=== PATIENT | male | born 1970 | race Caucasian/White ===

== ENCOUNTER 2020-04-28 07:03 | Outpatient (CLI) | payer MEDICARE, BC ==
[2020-04-28 08:12] LABS: BASOPHILS % (AUTO) 2 % (0-1); EOSINOPHILS % (AUTO) 7 % (1-7); LYMPHOCYTES % (AUTO) 24 % (22-44); MEAN CORPUSCULAR HEMOGLOBIN 30.8 pg (27.5-34.5); MEAN CORPUSCULAR HGB CONC 33.7 g/dL (33.2-36.2); MEAN PLATELET VOLUME 9.3 fL (7.4-10.4); MONOCYTES % (AUTO) 20 % (2-9); NEUTROPHILS % (AUTO) 47 % (42-75); PLATELET COUNT 186 x10^3/uL (130-400)
[2020-04-28 09:11] LABS: MD SCAN
== END 2020-04-28 23:59 | disposition home or self-care (01) ==
LOC: RAD 07:03 → LAB 23:59
PROVIDERS: ATTEND Radiology Diagnostic Radiology
DX: D61.818 Other pancytopenia (principal); D72.810 Lymphocytopenia
CPT/HCPCS: 36415; 38222; 77012; 85025; 85060; 85097; 88237; 88264; 88280; 88305; 88311; 88313